=== PATIENT | female | born 1930 | race Caucasian/White ===

== ENCOUNTER → 2016-09-05 | Outpatient (CLI) | payer OTHER | END | disposition home or self-care (01) | LOC: GMAM 13:30 | PROVIDERS: ATTEND Family Medicine | DX: E03.9 Hypothyroidism, unspecified (principal); M81.0 Age-related osteoporosis without current pathological fracture ==

== ENCOUNTER → 2017-04-10 | Outpatient (CLI) | payer MEDICARE | LOC: BFHH 12:48 | PROVIDERS: ATTEND Family Medicine | DX: I10 Essential (primary) hypertension (principal); E03.8 Other specified hypothyroidism ==

== ENCOUNTER → 2017-07-24 | Outpatient (CLI) | payer OTHER | END | disposition home or self-care (01) | LOC: GMAM 17:06 | PROVIDERS: ATTEND Family Medicine | DX: R06.02 Shortness of breath (principal); E03.9 Hypothyroidism, unspecified ==

== ENCOUNTER → 2017-07-31 | Outpatient (CLI) | payer OTHER | END | disposition home or self-care (01) | LOC: GMAM 16:37 | PROVIDERS: ATTEND Family Medicine | DX: R06.02 Shortness of breath (principal) ==

== ENCOUNTER 2017-08-30 14:13 | Inpatient (IN) | payer OTHER ==
--- NOTE | 2017-08-30 15:27 | RAD ---
EXAM DESCRIPTION: Chest,2 Views CLINICAL HISTORY: ACUTE UPPER RESPIRATORY INFECTION COMPARISON: None available FINDINGS: The heart is at the upper limits of normal size. Mediastinal contours are otherwise unremarkable. There is subsegmental atelectasis or scarring the left lung base, less likely developing pneumonia. No airspace consolidation or pleural effusion is identified. The lung volumes are within normal range. There is no pneumothorax or acute fracture. IMPRESSION: Left basilar interstitial prominence which may represent subsegmental atelectasis, scarring or developing pneumonia. No additional abnormality to explain patient symptoms. Electronically signed by: Cameron Navarrete MD 08/30/2017 3:26 PM [facility]
--- NOTE | 2017-08-30 16:04 | HP ---
SUPERVISING PHYSICIAN: Francisco Javier Guallpa M.D. CHIEF COMPLAINT: Cough and fatigue times 4 days. HISTORY OF PRESENT ILLNESS: This is an 87 year-old female patient who resides at [facility]. Her daughter say her today and she said that she has had progressive weakness with coughing and not eating over the past that has progressively worsened over the last 4 days. It actually started about a month ago where she noticed that her dementia was progressively worsening with her having a poor appetite and poor verbal communication, but in the last 4 days it has worsened to the point that she was just chewing her food and not swallowing it with no verbal communication at all. She called her primary care physician's office, Dr. Xiomara Wallace, and he suggested that she go to the walk-in clinic. Lab was done that showed a normal WBC at 5.4, hemoglobin 13.3 and hematocrit 42.1, platelet count was low at 109. Sodium 142, potassium 4.7, chloride 104, carbon dioxide 25. BUN was high at 31 with an elevated creatinine of 1.37. Glucose was 138. Liver enzymes were basically within normal limits. Blood cultures were done and a chest x-ray was also obtained and per radiology interpretation shows left basilar interstitial prominence which may represent subsegmental atelectasis, scarring or developing pneumonia. I was called for direct admission to the hospital. PAST MEDICAL HISTORY: 1. Alzheimer's dementia. 2. Chronic obstructive pulmonary disease. 3. Cardiomegaly. 4. Hypertension. 5. Chronic low back pain. 6. Osteoporosis. 7. Hyperlipidemia. 8. Spinal stenosis. 9. Thrombocytopenia. 10. Prinzmetal's angina. 11. Hypothyroidism. PAST SURGICAL HISTORY: 1. Appendectomy. 2. Hernia repair. 3. Tonsillectomy. OUTPATIENT MEDICATIONS: Per the EMR and awaiting verification. ALLERGIES: CODEINE, DEMEROL AND AMBIEN. ALACHUA LISTED HER BEING ALLERGIC TO SULFA ANTIBIOTICS AND HYDROCHLOROTHIAZIDE, BUT THE DAUGHTER IS UNAWARE OF THAT ALLERGY. SOCIAL HISTORY: She lives in [facility]. She is . She has 4 children. There is no history of tobacco, ETOH or illicit drug use. REVIEW OF SYSTEMS: Limited due to the patient's mental status, although the daughter said she has had coughing, anorexia and fatigue. Denies fever. PHYSICAL EXAMINATION: VITAL SIGNS: She is afebrile, heart rate 52, blood pressure 117/69, respiratory rate 16, O2 sat is 91% on 2 liters nasal cannula. GENERAL: This is an 87 year-old female patient who is lying in her hospital bed. She is in no acute distress. HEENT: Normocephalic and atraumatic. Pupils are equal and reactive. Oropharynx is clear. Oral mucous membranes are slightly dry. NECK: Supple without mass. RESPIRATORY: A few scattered rhonchi throughout, diminished at the bases. CHEST: There is equal rise and fall of the chest with inspiration and expiration. CARDIOVASCULAR: Regular rate and rhythm. GASTROINTESTINAL: Abdomen is soft, nondistended, non-tender. Bowel sounds are positive. EXTREMITIES: No cyanosis, clubbing or edema. NEUROLOGIC: She is awake and alert. She is nonverbal. She does not respond to any verbal stimuli. LABORATORY: Labs and films are as per the history of present illness. ASSESSMENT: 1. Left lower lobe pneumonia community acquired. 2. Dehydration. 3. Acute on chronic renal failure with a baseline creatinine of 0.9. 4. Thrombocytopenia that is chronic in nature. 5. Anorexia. 6. Worsening of dementia over the last month. PLAN: We will admit the patient to the hospital. I have initiated the pneumonia protocol which includes aggressive pulmonary hygiene. I have started a PPI for ulcer prophylaxis and Lovenox for DVT prophylaxis. Lab and x-ray will be checked in the morning. Will monitor cultures as the results become available. I have also ordered a sputum culture. She will be on azithromycin and Rocephin IV antibiotics. I gave her judicious IV fluids to correct the dehydration as well as Mucinex. Will also restart her medications when they are verified. We will continue to monitor the patient closely and follow as needed. Dr. Guallpa is the collaborating physician available for consultation. #[id number] [facility]
[2017-08-30] MEDS ORDERED: LEVALBUTEROL NEBS 1.25 MG/3 ML VIAL NEB PRN (16:26)
[2017-08-30] MEDS ORDERED: IV SET AND CAP CHANGE INJ INJ SCH (16:30)
[2017-08-30] MEDS ORDERED: ACETAMINOPHEN 325 MG TAB PO PRN (17:09)
[2017-08-30] MEDS ORDERED: SODIUM CHLORIDE 0.45% 1000ML 1,000 ML IVS ONE (17:12)
[2017-08-30] MEDS ORDERED: SODIUM CHL 0.9% 50ML MIN-BAG+ 50 ML IVPB ONE (17:13)
[2017-08-30] MEDS ORDERED: HYDROcodone 5MG/APAP 325MG 1 EA TAB PO PRN (17:13)
[2017-08-30] MEDS ORDERED: cefTRIAXone SODIUM 1 GM VIAL ONE (17:13)
[2017-08-30] MEDS: cefTRIAXone SODIUM 1 GM in SODIUM CHL 0.9% 50ML MIN-BAG+ 50 ML IVPB SCH (17:21)
[2017-08-30] MEDS: PANTOPRAZOLE SODIUM IV 40 MG VIAL IV SCH (17:35)
[2017-08-30] MEDS: ENOXAPARIN SODIUM 40 MG/0.4 ML SYG SUBCU SCH (17:35)
[2017-08-30] MEDS ORDERED: SODIUM CHLORIDE 0.9% 250ML 250 ML ONE ×2 (17:52→17:55)
[2017-08-30] MEDS ORDERED: AZITHROMYCIN IV 500 MG VIAL IVPB ONE (17:52)
[2017-08-30] MEDS: AZITHROMYCIN IV 500 MG in SODIUM CHLORIDE 0.9% 250ML 250 ML IVPB SCH (17:58)
[2017-08-30] MEDS ORDERED: LEVOTHYROXINE SODIUM 0.075 MG TAB ONE (19:42)
[2017-08-30] MEDS ORDERED: LEVOTHYROXINE SODIUM 0.1 MG TAB ONE (19:43)
[2017-08-30] MEDS: MELATONIN 3 MG TAB PO SCH (21:16)
[2017-08-30] MEDS: PREGABALIN 100 MG CAP PO SCH (21:16)
[2017-08-30] MEDS: guaiFENesin ER TAB 600 MG TAB PO SCH (21:17)
[2017-08-30] MEDS: DONEPEZIL HCL 5 MG TAB PO SCH (21:17)
[2017-08-30] MEDS: SIMVASTATIN 20 MG TAB PO SCH (21:17)
[2017-08-30] MEDS: LEVALBUTEROL NEBS 1.25 MG/3 ML VIAL NEB SCH (23:30)
[2017-08-31] MEDS ORDERED: SODIUM CHLORIDE 0.45% 1000ML 0 ML IVS ONE (03:55)
[2017-08-31] MEDS: LEVOTHYROXINE SODIUM 0.1 MG, LEVOTHYROXINE SODIUM 0.075 MG PO SCH ×2 (06:13)
[2017-08-31] MEDS ORDERED: LEVOTHYROXINE SODIUM 0.075 MG TAB PO SCH (07:00)
--- NOTE | 2017-08-31 07:55 | RAD ---
EXAM: Single view chest. INDICATION: Pneumonia. COMPARISON: Chest x-ray: 08/30/2017. FINDINGS: There is a left basilar airspace opacity. The heart is normal in size. There is no pneumothorax or pleural effusion. The bones are demineralized IMPRESSION: Left basilar airspace opacity, which may represent atelectasis or pneumonia Electronically signed by: Rene Pinto MD 08/31/2017 7:54 AM FISCAL MANAGER Workstation: [id number]
[2017-08-31] MEDS: POTASSIUM CHLORIDE 10 MEQ TAB PO SCH (08:22)
[2017-08-31] MEDS: LEVALBUTEROL NEBS 1.25 MG/3 ML VIAL NEB SCH ×4 (08:53→23:55)
[2017-08-31] MEDS: guaiFENesin ER TAB 600 MG TAB PO SCH ×2 (09:44→21:24)
[2017-08-31] MEDS: CELECOXIB 100 MG CAP PO SCH (09:44)
[2017-08-31] MEDS: FUROSEMIDE 40 MG TAB PO SCH ×2 (09:44→17:19)
[2017-08-31] MEDS: SERTRALINE HCL 50 MG TAB PO SCH (09:44)
[2017-08-31] MEDS: NON-FORMULARY MEDICATION 1 EA MIS (Raloxifene Hcl [Raloxifene Hydrochloride] 60 MG) PO SCH (10:00)
[2017-08-31] MEDS: NON-FORMULARY MEDICATION 1 EA MIS (Memantine Hcl [Namenda Xr] 28 MG) PO SCH (10:00)
--- NOTE | 2017-08-31 14:06 | PN ---
DATE: 08/31/17 SUPERVISING PHYSICIAN: Francisco Javier Guallpa M.D. SUBJECTIVE: The patient is lying in bed. She is in no acute distress. She is nonverbal. Family reports that she slept well last night but is very sleepy. OBJECTIVE: VITAL SIGNS: She is afebrile, heart rate 52, blood pressure 101/65, respiratory rate 18, O2 sat is 92% on 3 liters nasal cannula. RESPIRATORY: A few scattered rhonchi but improved from yesterday, somewhat diminished at the bases. There is no wheezing. CARDIAC: bradycardic rate, regular rhythm. GASTROINTESTINAL: Abdomen is soft, nondistended, non-tender. Bowel sounds are positive. EXTREMITIES: No cyanosis, clubbing or edema. NEUROLOGIC: She is awake. She is nonverbal. She follows simple commands such as squeezing your hands. LABORATORY: WBCs are normal at 5 with hemoglobin 11.6, hematocrit 35.5. Chemistries are basically within normal limits with the exception of her BUN is still slightly high at 29, glucose 106, calcium 82. Sputum culture is pending. Preliminary blood cultures are negative to date. RADIOLOGY: Chest x-ray per radiology interpretation shows left basilar airspace opacity which may represent atelectasis or pneumonia. All other labs and films have been reviewed via the EMR. ASSESSMENT: 1. Left lower lobe pneumonia community acquired presently on azithromycin and Rocephin. 2. Dehydration that has slightly improved. 3. Acute on chronic renal failure with a baseline creatinine of 0.9. 4. Thrombocytopenia that is chronic in nature. 5. Anorexia. 6. Worsening of dementia over the last month. PLAN: We will continue present supportive care. Will continue with her antibiotics and monitor cultures as the results become available. I will hold off on any lab or x-rays in the morning and will order those on Saturday. Hopefully she can be discharged back to [facility] at that time. Will continue to monitor closely and follow as needed. Dr. Guallpa is the collaborating physician available for consultation. #[id number] [facility]ENTER[facility]ah[facility]
[2017-08-31] MEDS ORDERED: SODIUM CHL 0.9% 50ML MIN-BAG+ 50 ML IVPB ONE (17:12)
[2017-08-31] MEDS ORDERED: cefTRIAXone SODIUM 1 GM VIAL ONE (17:13)
[2017-08-31] MEDS: PANTOPRAZOLE SODIUM IV 40 MG VIAL IV SCH (17:19)
[2017-08-31] MEDS: SODIUM CHLORIDE 0.9% (FLUSH) 10 ML SYG IV PRN ×3 (17:19→21:21)
[2017-08-31] MEDS: ENOXAPARIN SODIUM 40 MG/0.4 ML SYG SUBCU SCH (17:19)
[2017-08-31] MEDS: cefTRIAXone SODIUM 1 GM in SODIUM CHL 0.9% 50ML MIN-BAG+ 50 ML IVPB SCH (17:20)
[2017-08-31] MEDS ORDERED: SODIUM CHLORIDE 0.9% 250ML 250 ML ONE (17:36)
[2017-08-31] MEDS ORDERED: AZITHROMYCIN IV 500 MG VIAL IVPB ONE (17:36)
[2017-08-31] MEDS: AZITHROMYCIN IV 500 MG in SODIUM CHLORIDE 0.9% 250ML 250 ML IVPB SCH (17:56)
[2017-08-31] MEDS: PREGABALIN 100 MG CAP PO SCH (21:21)
[2017-08-31] MEDS: MELATONIN 3 MG TAB PO SCH (21:21)
[2017-08-31] MEDS: SIMVASTATIN 20 MG TAB PO SCH (21:21)
[2017-08-31] MEDS: DONEPEZIL HCL 5 MG TAB PO SCH (21:21)
[2017-09-01] MEDS: LEVOTHYROXINE SODIUM 0.1 MG, LEVOTHYROXINE SODIUM 0.075 MG PO SCH ×2 (06:00)
[2017-09-01] MEDS ORDERED: LEVOTHYROXINE SODIUM 0.1 MG TAB ONE (06:21)
[2017-09-01] MEDS ORDERED: LEVOTHYROXINE SODIUM 0.075 MG TAB ONE (06:21)
[2017-09-01] MEDS: POTASSIUM CHLORIDE 10 MEQ TAB PO SCH (07:51)
[2017-09-01] MEDS: LEVALBUTEROL NEBS 1.25 MG/3 ML VIAL NEB SCH ×2 (09:47→16:30)
[2017-09-01] MEDS: NON-FORMULARY MEDICATION 1 EA MIS (Raloxifene Hcl [Raloxifene Hydrochloride] 60 MG) PO SCH (09:49)
[2017-09-01] MEDS: guaiFENesin ER TAB 600 MG TAB PO SCH ×2 (09:49→20:30)
[2017-09-01] MEDS: FUROSEMIDE 40 MG TAB PO SCH ×2 (09:49→16:53)
[2017-09-01] MEDS: CELECOXIB 100 MG CAP PO SCH (09:49)
[2017-09-01] MEDS: SERTRALINE HCL 50 MG TAB PO SCH (09:49)
[2017-09-01] MEDS: NON-FORMULARY MEDICATION 1 EA MIS (Memantine Hcl [Namenda Xr] 28 MG) PO SCH (09:50)
--- NOTE | 2017-09-01 13:34 | PN ---
DATE: 09/01/17 SUPERVISING PHYSICIAN: Francisco Javier Guallpa M.D. SUBJECTIVE: The patient is sitting up in her hospital bed. She is eating her breakfast. She is mostly nonverbal but she does follow some simple commands and shakes her head yes and no. She does attempt to verbalize yes or no. She denies any shortness of breath or abdominal pain. She does have a cough but It has improved. OBJECTIVE: VITAL SIGNS: Temperature 98.3, pulse rate 66, blood pressure 109/67, respiratory rate 20. O2 saturation is 93% on 3 liters nasal cannula. RESPIRATORY: Scattered rhonchi throughout, slightly diminished at the bases more so on the left than the right. CARDIAC: Regular rate and rhythm. GASTROINTESTINAL: Abdomen is soft , nondistended, non -tender. Bowel sounds are positive. EXTREMITIES: No cyanosis, clubbing or edema. NEUROLOGIC: She is awake and alert. She is nonverbal. She follows commands. LABORATORY: There are no labs or films to report today. Awaiting sputum results. ASSESSMENT: 1. Left lower lobe pneumonia community acquired presently on azithromycin and Rocephin. 2. Dehydration that has improved. 3. Acute on chronic renal failure with a baseline creatinine of 0.9. 4. Thrombocytopenia that is chronic in nature. 5. Anorexia. 6. Worsening of dementia over the last month. PLAN: We will continue present supportive care. Will order lab and x-ray in the morning. Continue to monitor cultures. Hopefully she can be discharged to [place] tomorrow. She is still quite weak and she does not walk and uses a wheelchair for most everything. We will make sure she is strong enough for transfers and can safely go back to [place]. We will order physical therapy for in the morning. Otherwise, we will continue to monitor the patient closely and follow as needed. Dr. Guallpa is the collaborating physician available for consultation #[id number] [facility]
[2017-09-01] MEDS ORDERED: SODIUM CHL 0.9% 50ML MIN-BAG+ 50 ML IVPB ONE (16:47)
[2017-09-01] MEDS ORDERED: cefTRIAXone SODIUM 1 GM VIAL ONE (16:47)
[2017-09-01] MEDS ORDERED: AZITHROMYCIN IV 500 MG VIAL IVPB ONE (16:48)
[2017-09-01] MEDS ORDERED: SODIUM CHLORIDE 0.9% 250ML 250 ML ONE (16:48)
[2017-09-01] MEDS: cefTRIAXone SODIUM 1 GM in SODIUM CHL 0.9% 50ML MIN-BAG+ 50 ML IVPB SCH (16:53)
[2017-09-01] MEDS: PANTOPRAZOLE SODIUM IV 40 MG VIAL IV SCH (17:32)
[2017-09-01] MEDS: ENOXAPARIN SODIUM 40 MG/0.4 ML SYG SUBCU SCH (17:33)
[2017-09-01] MEDS: AZITHROMYCIN IV 500 MG in SODIUM CHLORIDE 0.9% 250ML 250 ML IVPB SCH (17:33)
[2017-09-01] MEDS: MELATONIN 3 MG TAB PO SCH (20:30)
[2017-09-01] MEDS: PREGABALIN 100 MG CAP PO SCH (20:30)
[2017-09-01] MEDS: SODIUM CHLORIDE 0.9% (FLUSH) 10 ML SYG IV PRN (20:30)
[2017-09-01] MEDS: DONEPEZIL HCL 5 MG TAB PO SCH (20:30)
[2017-09-01] MEDS: SIMVASTATIN 20 MG TAB PO SCH (20:30)
[2017-09-02] MEDS ORDERED: LEVOTHYROXINE SODIUM 0.1 MG TAB ONE (04:31)
[2017-09-02] MEDS ORDERED: LEVOTHYROXINE SODIUM 0.075 MG TAB ONE (04:31)
[2017-09-02] MEDS: LEVOTHYROXINE SODIUM 0.1 MG, LEVOTHYROXINE SODIUM 0.075 MG PO SCH ×2 (06:13)
--- NOTE | 2017-09-02 07:10 | RAD ---
EXAM: Single view chest. INDICATION: Pneumonia. COMPARISON: Chest x-ray: 08/31/2017. FINDINGS: There is a left basilar airspace opacity. The heart size is stable. There is no pneumothorax or pleural effusion. The bones are unchanged. IMPRESSION: Left basilar airspace opacity, which may represent atelectasis or pneumonia Electronically signed by: Rene Pinto MD 09/02/2017 7:08 AM [facility] Workstation: [id number]
[2017-09-02] MEDS: POTASSIUM CHLORIDE 10 MEQ TAB PO SCH (07:54)
[2017-09-02] MEDS: LEVALBUTEROL NEBS 1.25 MG/3 ML VIAL NEB SCH ×3 (08:14→21:00)
[2017-09-02] MEDS: CELECOXIB 100 MG CAP PO SCH (09:06)
[2017-09-02] MEDS: guaiFENesin ER TAB 600 MG TAB PO SCH (09:07)
[2017-09-02] MEDS: SERTRALINE HCL 50 MG TAB PO SCH (09:07)
[2017-09-02] MEDS: FUROSEMIDE 40 MG TAB PO SCH (09:07)
[2017-09-02] MEDS: NON-FORMULARY MEDICATION 1 EA MIS (Memantine Hcl [Namenda Xr] 28 MG) PO SCH (09:08)
[2017-09-02] MEDS: NON-FORMULARY MEDICATION 1 EA MIS (Raloxifene Hcl [Raloxifene Hydrochloride] 60 MG) PO SCH (09:08)
[2017-09-02] MEDS ORDERED: PANTOPRAZOLE SODIUM TAB 40 MG PO SCH (11:30)
[2017-09-02 15:35] VITALS: BP 98/56; TEMP 98.2; O2SAT 94
[2017-09-02] MEDS ORDERED: cefTRIAXone SODIUM 1 GM VIAL ONE (16:05)
[2017-09-02] MEDS ORDERED: SODIUM CHL 0.9% 50ML MIN-BAG+ 50 ML IVPB ONE (16:05)
[2017-09-02] MEDS: cefTRIAXone SODIUM 1 GM in SODIUM CHL 0.9% 50ML MIN-BAG+ 50 ML IVPB SCH (16:07)
--- NOTE | 2017-09-02 17:57 | DS ---
DISCHARGE DIAGNOSIS: 1. Acute left lower lobe pneumonia community acquired treated with Ceftriaxone and azithromycin parenterally with persistence of some of the inflammatory changes on chest x-ray but showing some clinical stability. 2. Dehydration, improved with supplementation of fluids. 3. Acute exacerbation of chronic renal insufficiency with a baseline creatinine of 0.9. 4. History of thrombocytopenia chronically noted. 5. History of anorexia. 6. Dementia, chronic with an acute exacerbation over the last 3 or 4 weeks. HISTORY OF PRESENT ILLNESS: This 87 year-old white female is admitted to the hospital from the Emergency Room because of worsening shortness of breath, coughing, not eating and getting progressively weaker for the last 3 or 4 days. In the Emergency Room, she was found to have significant left lower lobe pneumonia requiring blood cultures and close clinical followup as parenteral antibiotics were used to help prevent it from worsening. LABORATORY: White count remained normal and was 4,300 on the day of discharge with 39% neutrophils, hemoglobin 11.4. Chemistries showed potassium 3.4 with supplementation to continue, BUN is improved from 31 to 19 and creatinine from 1.37 improved to 0.84. Glucose 112 fasting on discharge. Calcium 8.3 with albumin 3.6, magnesium 2.4. No urinalysis. Blood cultures were negative. Sputum does reveal Staphylococcus aureus which is not Methicillin resistant. It apparently is sensitive to some of the cephalosporins and Erythromycin medication started in the Emergency Room with the patient showing some ongoing clinical improvement. Gram stain of the sputum did show a few gram positive cocci with a few WBCs present. RADIOLOGY: Chest x-ray did show persistence of inflammatory changes suggesting airspace opacification in the left lower lobe suggesting either atelectasis versus pneumonia with followup necessary. HOSPITAL COURSE: The patient remained poorly functional during her hospital stay but she is able to appropriately nod or shake her head to questioning. She does not answer with full sentences. The family is very assistive in helping with her ongoing needs. She arrived at the point where the family and the patient were willing to continue with outpatient management and close observation at [place] with longterm care available. PLAN: The patient will be discharged to [facility]. She will have followup with Dr. Wallace within the next week. Special attention to pneumonia followup encouraged. Consider a repeat chest x-ray in a week with reports to Dr. Wallace's office. Dr. Wallace can do the x-ray when he sees her in the clinic for repeat followup. She is going to continue with her home medications to which are added Ceftin 500 mg b.i.d. and azithromycin for the next 7 and 5 days respectively. PT is to continue with strengthening in an effort to reduce the patient's fall risk potential. Good nutrition is important. Drink adequate fluids. Return if not improving. #[id number] [facility]
== END 2017-09-02 17:00 | DRG 178 ==
LOC: LAB.O 14:13 → MS 15:54
PROVIDERS: ADMIT Nurse Practitioner Acute Care; ATTEND Emergency Medicine
DX: J15.211 Pneumonia due to Methicillin susceptible Staphylococcus aureus (principal); N17.9 Acute kidney failure, unspecified; E86.0 Dehydration; R53.1 Weakness; N18.9 Chronic kidney disease, unspecified; D69.6 Thrombocytopenia, unspecified; R63.0 Anorexia; G30.9 Alzheimer's disease, unspecified; F02.80 Dementia in other diseases classified elsewhere, unspecified severity, without behavioral disturbance, psychotic disturbance, mood disturbance, and anxiety; I10 Essential (primary) hypertension; G89.29 Other chronic pain; M54.5 Low back pain; M81.0 Age-related osteoporosis without current pathological fracture; E78.5 Hyperlipidemia, unspecified; E03.9 Hypothyroidism, unspecified; Z88.5 Allergy status to narcotic agent; Z88.8 Allergy status to other drugs, medicaments and biological substances

== ENCOUNTER → 2017-12-26 | Outpatient (CLI) | payer OTHER | LOC: GMAM 18:18 | PROVIDERS: ATTEND Family Medicine | DX: M62.81 Muscle weakness (generalized) (principal) ==

== ENCOUNTER → 2018-02-19 | Outpatient (CLI) | payer OTHER | LOC: GMA 12:07 | PROVIDERS: ATTEND Family Medicine | DX: B35.1 Tinea unguium (principal) ==

== ENCOUNTER → 2018-04-17 | Outpatient (CLI) | payer OTHER | LOC: GMAM 14:20 | PROVIDERS: ATTEND Family Medicine | DX: E03.9 Hypothyroidism, unspecified (principal) ==

== ENCOUNTER → 2018-11-21 | Outpatient (CLI) | payer OTHER | LOC: BFHH 14:51 | PROVIDERS: ATTEND Family Medicine | DX: D69.6 Thrombocytopenia, unspecified (principal) ==

== ENCOUNTER 2019-01-12 16:08 | Emergency (ER) | payer OTHER ==
--- NOTE | 2019-01-12 16:22 | ED.PDOC ---
History of Present Illness - General Chief Complaint: Trauma Time Seen by Provider: 01/12/19 16:18 Source: RN notes reviewed, EMS notes reviewed Additional Information: 88 [facility] NO LOC NO FOCAL WEAKNESS SHE IS NOT ON ANY ANTICOAGULANTS SHE APPEARS ALERT MENTAL STATUS EXAM LIMITED SECONDARY TO HER DEMENTIA PHYSICAL THERE IS A BRUISE NOTED ON THE LEFT FOREHEAD NECK SUPPLE NON TENDER NO FACIAL DROOP NO RIB TENDERNESS NO SUB CUTANEOUS CRACKLES ABDOMEN SOFT NON TENDER MARKETING OPERATIONS ASSISTANT NO FOCAL DEFICIT - History of Present Illness Timing/Duration: unsure, 1 hour Severity: moderate Improving Factors: nothing Worsening Factors: nothing Associated Symptoms: denies symptoms Allergies/Adverse Reactions: Allergies Codeine Allergy (Verified 08/30/17 16:09) Meperidine [From Demerol HCl] Allergy (Verified 08/30/17 16:33) Sulfa Antibiotics Allergy (Verified 08/30/17 17:00) Zolpidem [From Ambien] Allergy (Verified 08/30/17 16:33) Home Medications: Ambulatory Orders Acetaminophen [Tylenol] 1 - 2 tablet PO Q6HR PRN 08/30/17 Albuterol Sulfate Nebs [Proventil Nebs] 2.5 mg INH QID PRN 08/30/17 Calcium Citrate-Vitamin D [Citracal + D3 Maximum 315-250 mg-Unit] 1 tab PO BID 08/30/17 Celecoxib [Celebrex] 200 mg PO DAILY 08/30/17 Diltiazem HCl Coated Beads [Diltiazem Cd] 120 mg PO DAILY 08/30/17 Donepezil Hydrochloride [Aricept] 10 mg PO BEDTIME 08/30/17 Fexofenadine HCl [Deidre Allergy] 180 mg PO DAILY PRN 08/30/17 Flaxseed (Linseed) [Flax Seed Oil 1000 mg] 1 cap PO DAILY PRN 08/30/17 Furosemide Tab [Lasix Tab] 40 mg PO BID 08/30/17 Guaifenesin [Mucinex] 600 mg PO Q12HRS PRN 08/30/17 HYDROcodone 5MG/APAP 325MG [[place] 5/325] 1 tab PO Q4HR PRN 08/30/17 Ibuprofen [Advil] 200 mg PO Q4HR PRN 18 Levothyroxine Sodium [Synthroid] 0.175 mg PO 0700 08/30/17 Melatonin 3 mg PO BEDTIME 08/30/17 Memantine HCl [Namenda Xr] 28 mg PO DAILY 08/30/17 Pantoprazole Tablet [Protonix] 40 mg PO DAILY 08/30/17 Polyethylene Glycol 3350 [Miralax] 17 gm PO DAILY 08/30/17 Potassium Chloride [Micro-K] 10 meq PO DAILY 08/30/17 Pregabalin [Lyrica] 300 mg PO BEDTIME 08/30/17 Raloxifene HCl [Raloxifene Hydrochloride] 60 mg PO DAILY 08/30/17 Sertraline HCl 100 mg PO DAILY 08/30/17 Simvastatin [Zocor] 20 mg PO BEDTIME 08/30/17 Azithromycin Tab [Zithromax] 250 mg PO QD #5 tab 09/02/17 Cefuroxime Axetil [Ceftin] 500 mg PO Q12H #14 tablet 09/02/17 Review of Systems - Review of Systems Constitutional: States: no symptoms reported EENTM: States: no symptoms reported Respiratory: States: no symptoms reported Cardiology: States: no symptoms reported Gastrointestinal/Abdominal: States: no symptoms reported Genitourinary: States: no symptoms reported Musculoskeletal: States: no symptoms reported Skin: States: no symptoms reported Neurological: States: no symptoms reported Endocrine: States: no symptoms reported Hematologic/Lymphatic: States: no symptoms reported Past Medical History (General) - Patient Medical History Hx Seizures: No Hx Stroke: No Hx Asthma: No Hx of COPD: Yes Hx Congestive Heart Failure: No Hx Pacemaker: No Hx Hypertension: Yes Hx Diabetes: No Hx MRSA: No - Social History Hx Alcohol Use: No Hx Substance Use: No Hx Physical Abuse: No Hx Emotional Abuse: No Family Medical History - Family History Father Family History: Unknown Mother Family History: Unknown Sister Living Status: Hx Family Cancer: Yes Physical Exam - Physical Exam General Appearance: Alert, Comfortable Eye Exam: bilateral normal Ears, Nose, Throat: hearing grossly normal, normal ENT inspection, normal pharynx Neck: non-tender, full range of motion, supple Respiratory: chest non-tender, lungs clear, normal breath sounds, no respiratory distress, no accessory muscle use Cardiovascular/Chest: normal peripheral pulses, regular rate, rhythm, no edema, no gallop, no JVD, no murmur Gastrointestinal/Abdominal: normal bowel sounds, non tender, soft, no organomegaly, no pulsatile mass Back Exam: no CVA tenderness, no vertebral tenderness Extremity: normal range of motion, non-tender, normal inspection Neurologic: drapery rod assembler II-XII nml as tested, no motor/sensory deficits, alert, normal mood/affect, oriented x 3 Departure - Departure Clinical Impression: Minor closed head injury, Fracture of bone of left shoulder Time of Disposition: 17:29 Disposition: Discharge to SNF Condition: Good Departure Forms: ED Discharge - Pt. Copy, Patient Portal Self Enrollment Instructions: DI for Trauma Diet: resume usual diet Referrals: Thomas Wallace MD [Primary Care Provider] - 1-2 Weeks Home Medications: Ambulatory Orders Acetaminophen [Tylenol] 1 - 2 tablet PO Q6HR PRN 08/30/17 Albuterol Sulfate Nebs [Proventil Nebs] 2.5 mg INH QID PRN 08/30/17 Calcium Citrate-Vitamin D [Citracal + D3 Maximum 315-250 mg-Unit] 1 tab PO BID 08/30/17 Celecoxib [Celebrex] 200 mg PO DAILY 08/30/17 Diltiazem HCl Coated Beads [Diltiazem Cd] 120 mg PO DAILY 08/30/17 Donepezil Hydrochloride [Aricept] 10 mg PO BEDTIME 08/30/17 Fexofenadine HCl [Deidre Allergy] 180 mg PO DAILY PRN 08/30/17 Flaxseed (Linseed) [Flax Seed Oil 1000 mg] 1 cap PO DAILY PRN 08/30/17 Furosemide Tab [Lasix Tab] 40 mg PO BID 08/30/17 Guaifenesin [Mucinex] 600 mg PO Q12HRS PRN 08/30/17 HYDROcodone 5MG/APAP 325MG [[place] 5/325] 1 tab PO Q4HR PRN 08/30/17 Ibuprofen [Advil] 200 mg PO Q4HR PRN 08/30/17 Levothyroxine Sodium [Synthroid] 0.175 mg PO 0700 08/30/17 Melatonin 3 mg PO BEDTIME 08/30/17 Memantine HCl [Namenda Xr] 28 mg PO DAILY 08/30/17 Pantoprazole Tablet [Protonix] 40 mg PO DAILY 08/30/17 Polyethylene Glycol 3350 [Miralax] 17 gm PO DAILY 08/30/17 Potassium Chloride [Micro-K] 10 meq PO DAILY 08/30/17 Pregabalin [Lyrica] 300 mg PO BEDTIME 08/30/17 Raloxifene HCl [Raloxifene Hydrochloride] 60 mg PO DAILY 08/30/17 Sertraline HCl 100 mg PO DAILY 08/30/17 Simvastatin [Zocor] 20 mg PO BEDTIME 08/30/17 Azithromycin Tab [Zithromax] 250 mg PO QD #5 tab 09/02/17 Cefuroxime Axetil [Ceftin] 500 mg PO Q12H #14 tablet 09/02/17
[2019-01-12 16:32] VITALS: TEMP 97.6
--- NOTE | 2019-01-12 17:37 | CT ---
EXAM DESCRIPTION: Head CLINICAL HISTORY: 88 years Female FALL COMPARISON: None TECHNIQUE: Images were obtained in axial, sagittal, and coronal planes. This exam was performed according to our departmental dose-optimization program which includes use of Automated Exposure Control, adjustment of the mA and/or kV according to patient size and/or use of iterative reconstruction technique. FINDINGS: Ventricular system is markedly enlarged. Marked prominence of the cortical sulci. Marked cerebral volume loss. No abnormal areas of increased attenuation involving the brain parenchyma. Marked periventricular decreased attenuation consistent with more remote microvascular ischemic change. No evidence for skull fracture. Symmetric aeration mastoid air cells bilaterally. Unremarkable paranasal sinuses. IMPRESSION: No acute intracranial abnormality. No evidence for hemorrhage, mass lesion, or large acute infarction. Marked cerebral volume loss. Electronically signed by: Ashley Lorenzo MD 01/12/2019 5:35 PM CDT
[2019-01-12 18:45] VITALS: BP 124/52; O2SAT 97
== END 2019-01-12 18:20 ==
LOC: ER 16:08
DX: S09.90XA Unspecified injury of head, initial encounter (principal); S00.83XA Contusion of other part of head, initial encounter; S42.92XA Fracture of left shoulder girdle, part unspecified, initial encounter for closed fracture; F03.90 Unspecified dementia, unspecified severity, without behavioral disturbance, psychotic disturbance, mood disturbance, and anxiety; J44.9 Chronic obstructive pulmonary disease, unspecified; I10 Essential (primary) hypertension; Z79.899 Other long term (current) drug therapy; Z88.5 Allergy status to narcotic agent; Z88.8 Allergy status to other drugs, medicaments and biological substances; Z88.2 Allergy status to sulfonamides; W19.XXXA Unspecified fall, initial encounter; Y92.129 Unspecified place in nursing home as the place of occurrence of the external cause

== ENCOUNTER → 2019-04-20 | Outpatient (CLI) | payer OTHER | LOC: GMAM 11:42 | PROVIDERS: ATTEND Family Medicine | DX: E03.9 Hypothyroidism, unspecified (principal) ==